=== PATIENT | female | born 1950 | race Caucasian/White ===

== ENCOUNTER → 2018-05-04 | Outpatient (CLI) | payer MEDICARE, OTHER ==
[~2018-05-04] MED LIST: CHOL40002 PO; CYCL-259 PO; FISH1CAP PO; MELO15TA24 PO; MULT-717 PO; TRAM50TA2 PO; VIT1CAPS42 PO; VITA400C43 PO
[2018-05-04 12:58] LABS: BASOPHILS # (AUTO) 0.03 x10^3/uL (0-0.1); BASOPHILS % (AUTO) 1 % (0-1); EOSINOPHILS # (AUTO) 0.21 x10^3/uL (0-0.4); EOSINOPHILS % (AUTO) 3 % (1-7); LYMPHOCYTES % (AUTO) 27 % (22-44); MD NO; MEAN CORPUSCULAR HEMOGLOBIN 31.2 pg (27.0-34.8); MEAN CORPUSCULAR HGB CONC 33.9 g/dL (32.4-35.8); MEAN CORPUSCULAR VOLUME 91.8 fL (80-100); MEAN PLATELET VOLUME 7.7 fL (7.4-10.4); MONOCYTES % (AUTO) 11 % (2-9); NEUTROPHILS # (AUTO) 4.17 x10^3/uL (1.8-6.8); NEUTROPHILS % (AUTO) 59 % (42-75); PLATELET COUNT 313 x10^3/uL (130-400); RED BLOOD COUNT 4.86 x10^6/uL (3.82-5.3); RED CELL DISTRIBUTION WIDTH 12.1 % (9.6-15.2)
[2018-05-04 13:05] LABS: INTERNATIONAL NORMALIZED RATIO 0.95 (0.93-1.1); PROTHROMBIN TIME 9.9 Seconds (9.6-11.5)
[2018-05-04 13:06] LABS: ANION GAP 4 mmol/L (5-15); CHLORIDE 103 mmol/L (98-107); CREATININE 0.83 mg/dL (0.55-1.02)
== END | disposition home or self-care (01) ==
LOC: STAR 11:55
PROVIDERS: ATTEND Neurological Surgery
DX: Z01.818 Encounter for other preprocedural examination (principal); M48.062 Spinal stenosis, lumbar region with neurogenic claudication
CPT/HCPCS: 36415; 71046; 80048; 85025; 85610; 85730; 93005

== ENCOUNTER 2018-05-16 05:47 | Observation (INO) | payer MEDICARE, OTHER ==
[~2018-05-16] VITALS: Ht 149.9 cm; Wt 57.3 kg
[2018-05-16] MEDS ORDERED: LACTATED RINGERS 1,000 ML IV SCH (06:22)
[2018-05-16] MEDS ORDERED: BUPIVACAINE/PF-EPI 0.5% 1:200K ONE (07:02)
[2018-05-16] MEDS ORDERED: THROMBIN 5,000 UNIT VIAL TP ONE (07:02)
[2018-05-16] MEDS ORDERED: MIDAZOLAM 1 MG/ML, 2ML ONE (07:02)
[2018-05-16] MEDS ORDERED: BACITRACIN 50,000 UNIT ONE (07:02)
[2018-05-16] MEDS ORDERED: FENTANYL PF 250 MCG/5ML ONE (07:03)
[2018-05-16] MEDS ORDERED: ACETAMINOPHEN 500 MG TABLET ONE (07:15)
[2018-05-16] MEDS ORDERED: SCOPOLAMINE PATCH, 1.5MG PATCH.TD72 TD ONE ×2 (07:15→07:30)
[2018-05-16] MEDS ORDERED: GABAPENTIN 300 MG CAPSULE ONE (07:15)
[2018-05-16] MEDS ORDERED: GLYCOPYRROLATE 0.2MG/1ML, 5ML ONE (07:24)
[2018-05-16] MEDS ORDERED: ROCURONIUM 10 MG/ML,10ML ONE (07:24)
[2018-05-16] MEDS ORDERED: DEXAMETHASONE 4 MG/ML, 1ML ONE (07:24)
[2018-05-16] MEDS ORDERED: PROPOFOL 10 MG/ML, 20ML ONE (07:24)
[2018-05-16] MEDS ORDERED: CEFAZOLIN 1,000 MG ONE (07:24)
[2018-05-16] MEDS ORDERED: NEOSTIGMINE 1 MG/ML, 10ML ONE (07:24)
[2018-05-16] MEDS ORDERED: ONDANSETRON 2MG/ML, 2ML ONE (07:24)
[2018-05-16] MEDS ORDERED: GABAPENTIN 300 MG CAPSULE PO ONE (07:30)
[2018-05-16] MEDS ORDERED: ACETAMINOPHEN 500 MG TABLET PO ONE (07:30)
[2018-05-16] MEDS ORDERED: PROMETHAZINE 25 MG/ML, 1ML IV PRN (09:30)
[2018-05-16] MEDS ORDERED: ONDANSETRON 2MG/ML, 2ML IVPush PRN (09:30)
[2018-05-16] MEDS ORDERED: HYDROmorphone 1 MG/ML, 1ML IV PRN (09:30)
[2018-05-16] MEDS ORDERED: LABETALOL 5MG/ML, 20ML IV PRN ×2 (09:30→11:30)
[2018-05-16] MEDS ORDERED: MEPERIDINE/PF 25MG/0.5ML IVPush PRN (09:30)
[2018-05-16] MEDS ORDERED: METOCLOPRAMIDE 5 MG/ML, 2ML IV PRN (09:30)
[2018-05-16] MEDS ORDERED: ALBUTEROL SULFATE 2.5 MG/3 ML NPPB PRN (09:30)
[2018-05-16] MEDS ORDERED: KETOROLAC 30 MG/1 ML IV PRN (09:30)
[2018-05-16] MEDS ORDERED: hydrALAzine 20 MG/ML, 1ML IV PRN (09:30)
[2018-05-16] MEDS ORDERED: OXYcodone 5 MG/5 ML ORAL.SOL UDC PO PRN (09:30)
[2018-05-16] MEDS ORDERED: OXYcodone 5 MG/5 ML ORAL.SOL UDC ONE (09:42)
[2018-05-16] MEDS ORDERED: FENTANYL PF 100 MCG/2ML ONE (09:42)
[2018-05-16] MEDS: FENTANYL PF 100 MCG/2ML IV PRN ×2 (09:47→10:00)
[2018-05-16] MEDS ORDERED: PROMETHAZINE 25 MG/ML, 1ML ONE (09:53)
[2018-05-16] MEDS ORDERED: HYDROmorphone 2 MG/ML, 1ML ONE (10:02)
[2018-05-16] MEDS ORDERED: PROMETHAZINE 25 MG/ML, 1ML IM PRN (11:30)
[2018-05-16] MEDS ORDERED: BISACODYL 10 MG SUPP PR PRN (11:30)
[2018-05-16] MEDS ORDERED: MAGNESIUM HYDROXIDE 8%, 30ML UDC PO PRN (11:30)
[2018-05-16] MEDS ORDERED: METHOCARBAMOL 750 MG TABLET PO PRN (11:30)
[2018-05-16] MEDS ORDERED: ONDANSETRON 2MG/ML, 2ML IV PRN (11:30)
[2018-05-16] MEDS ORDERED: HYDROmorphone 2 MG/ML, 1ML IM PRN (11:30)
[2018-05-16] MEDS: NS + 20MEQ KCL 1,000 ML IV SCH (11:53)
[2018-05-16 13:15] VITALS: BP 140/66
[2018-05-16] MEDS: CYCLOBENZAPRINE 10 MG TABLET PO SCH ×2 (15:41→20:22)
[2018-05-16] MEDS: CEFAZOLIN PMX 1GM/50ML 50 ML IVPB SCH ×2 (15:41→23:41)
[2018-05-16 19:22] VITALS: BP 126/74
[2018-05-17 01:07] VITALS: BP 106/74
[2018-05-17] MEDS: OXYcodone/APAP 5/325MG TABLET PO PRN ×3 (01:42→08:35)
[2018-05-17] MEDS: NS + 20MEQ KCL 1,000 ML IV SCH (01:42)
[2018-05-17 06:49] VITALS: BP 121/72
[2018-05-17] MEDS ORDERED: OXYC-302 PO (08:30)
[2018-05-17] MEDS: CYCLOBENZAPRINE 10 MG TABLET PO SCH (08:35)
[2018-05-17] MEDS ORDERED: SENNA/DOCUSATE TABLET PO SCH (09:00)
== END 2018-05-17 11:00 | disposition home or self-care (01) ==
LOC: OUT 05:47 → 4NOR 11:05 → OUT 18:32 → DCLOUNGE 05-17 10:55
PROVIDERS: ADMIT Neurological Surgery; ATTEND Neurological Surgery
DX: M48.061 Spinal stenosis, lumbar region without neurogenic claudication (principal); M51.16 Intervertebral disc disorders with radiculopathy, lumbar region; Z87.891 Personal history of nicotine dependence
CPT/HCPCS: 63047; 63048; 72100; 96365; 96366; G0378; J0690; J1100; J1170; J2250; J2405; J2550; J2704; J2710; J3010; J3480; J3490; J7120